=== PATIENT | male | born 1975 | race Caucasian/White ===

== ENCOUNTER 2021-05-27 19:23 | Emergency (ER) | payer OTHER ==
[2021-05-27 20:05] LABS: BASOPHIL 0.7 % (0-2); HCT 44.6 % (42.0-52.0); HGB 15.1 g/dl (13.2-18.0); LYMPHOCYTE 38.5 % (15-48); MCH 31.4 pg (25.0-31.0); MCHC 33.9 g/dL (32.0-36.0); MCV 92.7 fL (78.0-100.0); MONOCYTE 7.5 % (0-12); MPV 9.1 fL (6.0-9.5); NEUTROPHIL 47.9 % (41-80); NRBC 0; PLT 311 K/uL (150-400); RBC 4.81 M/uL (4.70-6.00); RDW 12.2 % (11.5-14.0); WBC 8.9 K/uL (4.0-10.5)
[2021-05-27 20:20] LABS: BUN/CREAT RATIO (CALC) 18.9 RATIO; CREATININE 0.74 mg/dL (0.67-1.17); POTASSIUM 4.3 mmol/L (3.5-5.1)
[2021-05-27 20:38] LABS: INFLUENZA A NAA NEGATIVE (NEGATIVE)
[2021-05-27 20:47] LABS: CORONAVIRUS 2019 SARS-COV-2 POSITIVE (NEGATIVE)
== END 2021-05-27 21:41 | disposition home or self-care (01) ==
LOC: FER 19:23
PROVIDERS: Nurse Practitioner Family
DX: U07.1 COVID-19 (principal); I10 Essential (primary) hypertension; F17.290 Nicotine dependence, other tobacco product, uncomplicated
CPT/HCPCS: 36415; 71045; 80048; 85025; 85379; 93005; U0002